=== PATIENT | female | born 1980 | race Two or more races ===

== ENCOUNTER 2017-01-23 20:27 | Inpatient (IN) | payer MEDICAID, OTHER ==
[~2017-01-23] VITALS: Ht 165.1 cm; Wt 55.9 kg
[2017-01-23 20:37] VITALS: Ht 165.1 cm; Wt 55.9 kg
[2017-01-23 21:24] VITALS: BP 112/56; PULSE 62; RESP 18
[2017-01-23] MEDS ORDERED: OXYTOCIN 30 UNITS/LR 500 ML IV PRN (21:30)
[2017-01-23] MEDS ORDERED: METHYLERGONOVINE 0.2 MG INJ IM PRN (21:30)
[2017-01-23] MEDS ORDERED: BUTORPHANOL 2 MG INJ IV PRN (21:30)
[2017-01-23] MEDS ORDERED: MISOPROSTOL 200 MCG TAB PR PRN (21:30)
[2017-01-23] MEDS ORDERED: OXYTOCIN 30 UNITS/LR 500 ML IV SCH ×2 (21:30)
[2017-01-23] MEDS ORDERED: DINOPROSTONE 10 MG VAG SUPP VAG ONE (21:30)
[2017-01-23] MEDS ORDERED: CARBOPROST 250 MCG INJ IM PRN (21:30)
[2017-01-23] MEDS ORDERED: LIDOCAINE 1% (MPF) 30 ML INJ INJ PRN (21:30)
[2017-01-23] MEDS: LACTATED RINGER'S 1,000 ML IV SCH (22:16)
--- NOTE | 2017-01-23 22:48 | HP ---
Date/Time of Note Date/Time of Note DATE: 01/23/17 TIME: 22:41 OB - History Hx of Present Free Text/Dictation Pt is a 36yo at 38+6 presenting from Perinatology at [facility] for induction of labor in the setting of IUGR. Pt was seen today for growth U/S for S<D and growth found to be inadequate on comparison to prior U/S. EFW 2671g, <10% ile with AC <2.3%ile. Dopplers and fluid wnl (9.82cm). Pt c/o feeling some UCs. Denies LOF or VB. Reports normal FM. Estimated Due Date: January 31, 2017 : 2 Para: 1 Care: Good Care Ultrasounds: Abnormal US findings (IUGR) Obstetrical Complications: Growth Restriction Medical Complications: None Other Concerns: AMA w/low risk NIPT; Normal echo 12/20/16. CMV, Parvo and Toxo IgG and IgM positive however no recent infection. Past Family/Social History * Past Medical, Surgical, Family and Obstetric Histories reviewed from chart. Blood Type: O+ Rubella: immune RPR/VDRL: Negative GBS Status: Negative HBsAG: Negative OB Admission Exam Vital Signs Vital Signs Vital Signs Date Time Temp Pulse Resp B/P Pulse Ox O2 Delivery O2 Flow Rate FiO2 01/23/17 21:24 97.5 62 18 112/56 Room Air Physical Exam HEENT: WNL Heart: Rhythm Normal Lungs: Clear Abdomen: WNL (gravid) Extremities: Normal Cervical Dilatation: None Effacement: 0% Station: Ballotable Membranes: Intact Heart Rate: 120's Accelerations: Accelerations Present Decelerations: No Decelerations Varibility: Moderate Contractions on Admission: 6-10 Minutes Apart (irregular) OB Assessment/Plan Reason for admission: induction of labor Other Assessment: IUGR at term Reactive NST Other plan: 1)Labor: Will begin IOL with Cervidil -Cont toco -Admission labs 2)FWB: Given IUGR with lagging AC, recommend IOL to which pt is in agreement -CEFM 3)ID: Afebrile. BOWI. GBS negative. GBS ppx therefore not indicated 4)Pain: Meds prn Plan d/w pt. Questions answered to her satisfaction. ZARA GIBBONS MD January 23, 2017 22:48
--- NOTE | 2017-01-23 22:58 | TRIAGE ---
OB Triage Datetime Report Generated by CPN: 01/23/2017 22:57 Datetime: 01/23/2017 22:15 Assessment Type: Ongoing Assessment Datetime: 01/23/2017 22:00 Stage of : Labor Assessment Type: Admission Assessment Vaginal Bleeding: None Maternal Assessment Level of Consciousness: Fully Conscious DTR's/Clonus: DTRs 2+; No Clonus Headache: Denies Blurred Vision: No Respiratory Effort: Unlabored; Regular Rhythm; Equal Expansion Breath Sounds, Left: Clear and Equal Breath Sounds, Right: Clear and Equal Nausea/Vomiting: Denies RUQ Epigastric Pain: Denies Lower Extremities Edema: None Degree: None Upper Extremities Edema: None Degree: None Facial Edema: None Fall Risk Assessment History of Falling: (0) No Secondary Diagnosis: (0) No Ambulatory Aid: (0) Bedrest/Nurse Assist IV Therapy: (0) No Gait: (0) Normal/Bedrest/Immobile Mental Status: (0) Oriented to Own Ability Fall Score: 0 Fall Risk Score Definition: No Risk: No action required Pain Assessment Pain Scale: 0 Pain Presence: None/Denies Pain Type: N/A Datetime: 01/23/2017 21:55 Time of Arrival: 01/23/2017 21:55 EGA: 38.6 Arrived By: Wheelchair Arrived From: Other Unit in Hospital Datetime: 01/23/2017 21:50 Stage of : OB Triage Labor Evaluation Frequency: OCCASS Monitor Mode: External Duration (sec)2399: 80-120 Quality: Mild Pattern: Normal: <= 5 Contractions in 10 Minutes Resting Tone [place]: Relaxed Heart Rate FHR Baseline Rate: 130 Monitor Mode: External US Variability: Moderate 6-25 bpm Accelerations: 15X15 Decelerations: None Category: Category I Pain Assessment Pain Scale: 5 Pain Presence: Intermittent Pain Type: Cramping Pain Location: Abdomen Pain Relief Measures: Comfort Measures Datetime: 01/23/2017 21:05 Vaginal Exam Dilatation (cms): 0.0 Effacement (%): 0 Station: -2 Exam By: ZANDER Vaginal Bleeding: None Cervix, Consistency: Moderate Cervix, Position: Posterior Datetime: 01/23/2017 20:50 Time of Arrival: 01/23/2017 20:22 EGA: 38.6 Arrived By: Wheelchair Arrived From: Other Hospital Chief Complaint: PT. CAME IN FROM [facility] FOR RECOMMENDED DELIVERY FOR GROWTH RESTRICT ION AND ABD. PAIN Movement: Present Contractions: Occasional Rupture of Membranes: Denies Vaginal Discharge: Denies Additional Patient Complaints: EFW [id number] Time Provider Notified: 01/23/2017 21:22 Provider Notified: SHAI Initial Plan: EFM, ASSESSMENT, CALL MD FOR ORDERS Datetime: 01/23/2017 20:42 Assessment Type: Triage Maternal Assessment Level of Consciousness: Fully Conscious DTR's/Clonus: DTRs 2+; No Clonus Headache: Denies Blurred Vision: No Respiratory Effort: Unlabored; Regular Rhythm; Equal Expansion Breath Sounds, Left: Clear and Equal Breath Sounds, Right: Clear and Equal Nausea/Vomiting: Denies RUQ Epigastric Pain: Denies Lower Extremities Edema: None Upper Extremities Edema: None Facial Edema: None Fall Risk Assessment History of Falling: (0) No Secondary Diagnosis: (0) No Ambulatory Aid: (0) Bedrest/Nurse Assist IV Therapy: (0) No Gait: (0) Normal/Bedrest/Immobile Mental Status: (0) Oriented to Own Ability Fall Score: 0 Fall Risk Score Definition: No Risk: No action required
[2017-01-23 23:00] LABS: ADD SCAN DIFF NO
[2017-01-23 23:01] LABS: BASOPHILS % 0.2 % (0.0-2.0); EOSINOPHILS # 0.1 10^3/ul (0.0-0.5); EOSINOPHILS % 0.9 % (0.0-7.0); HEMATOCRIT 36.5 % (37.0-47.0); HEMOGLOBIN 12.2 g/dl (12.0-16.0); LYMPHOCYTES # 2.3 10^3/ul (0.8-2.9); LYMPHOCYTES % 24.3 % (15.0-51.0); MEAN CORPUSCULAR HGB CONC 33.4 g/dl (32.0-37.0); MEAN CORPUSCULAR VOLUME 86.7 fl (82.0-101.0); MEAN PLATELET VOLUME 11.9 fl (7.4-10.4); MONOCYTE # 0.7 10^3/ul (0.3-0.9); MONOCYTES % 7.8 % (0.0-11.0); NEUTROPHIL # 6.2 10^3/ul (1.6-7.5); NEUTROPHILS % 66.3 % (39.0-77.0); PLATELET COUNT 215 10^3/UL (140-415); RED BLOOD COUNT 4.21 10^6/ul (4.20-5.40); RED CELL DISTRIBUTION WIDTH 13.5 % (11.5-14.5); WHITE BLOOD COUNT 9.3 10^3/ul (4.8-10.8)
[2017-01-23 23:19] LABS: INR 0.93; PROTIME 12.5 Sec (12.2-14.2)
[2017-01-23 23:20] LABS: PARTIAL THROMBOPLASTIN TIME 28.9 Sec (25.0-35.0)
[2017-01-24] MEDS: LACTATED RINGER'S 1,000 ML IV SCH ×2 (04:01→09:18)
[2017-01-24] MEDS ORDERED: FENTAnyl 2MCG/ML-ROPIV 0.2% 100 ML ONE (08:30)
[2017-01-24] MEDS ORDERED: OXYTOCIN 30 UNITS/LR 500 ML IV SCH (08:30)
[2017-01-24] MEDS ORDERED: LACTATED RINGER'S 1,000 ML IV PRN (09:00)
--- NOTE | 2017-01-24 11:20 | LDN ---
Date/Time of Note Date/Time of Note DATE: 01/24/17 TIME: 11:19 Delivery Summary nsd no complications Weeks of Gestation 39 weeks Placenta Delivered: Spontaneously Meconium: none Episiotomy: No Perineal laceration: 2 Anesthesia type: Epidural Estimated blood loss: 350 Sponge & Needle done & correct: Yes All needle counts correct: Yes Problems: LILIA YAN MD January 24, 2017 11:20
[2017-01-24] MEDS ORDERED: CARBOPROST 250 MCG INJ IM PRN (11:30)
[2017-01-24] MEDS ORDERED: DIPHENHYDRAMINE 25 MG CAP PO PRN (11:30)
[2017-01-24] MEDS ORDERED: METHYLERGONOVINE 0.2 MG INJ IM PRN (11:30)
[2017-01-24] MEDS ORDERED: SENNA/DOCUSATE NA (8.6MG/50MG) TAB PO PRN (11:30)
[2017-01-24] MEDS ORDERED: OXYTOCIN 30 UNITS/LR 500 ML IV PRN (11:30)
[2017-01-24] MEDS ORDERED: WITCH HAZEL/GLYCERIN PAD PR PRN (11:30)
[2017-01-24] MEDS ORDERED: ZOLPIDEM 5 MG TAB PO PRN (11:30)
[2017-01-24] MEDS ORDERED: MISOPROSTOL 200 MCG TAB PR PRN (11:30)
[2017-01-24] MEDS ORDERED: MAGNESIUM HYDROXIDE 30ML CUP PO PRN (11:30)
[2017-01-24] MEDS ORDERED: LANOLIN 7 GM TUBE TOP PRN (11:30)
[2017-01-24] MEDS ORDERED: ACETAMINOPHEN 325 MG TAB PO PRN (11:30)
[2017-01-24] MEDS ORDERED: ACETAMINOPHEN/CODEINE #3 TAB PO PRN (11:30)
[2017-01-24] MEDS: OXYTOCIN 30 UNITS/LR 500 ML IV SCH ×2 (11:36→15:56)
[2017-01-24] MEDS: LACTATED RINGER'S 1,000 ML IV* SCH ×2 (11:45→20:58)
[2017-01-24] MEDS ORDERED: ONDANSETRON 4 MG INJ ONE (12:27)
[2017-01-24] MEDS ORDERED: ONDANSETRON 4 MG INJ IV PRN (12:30)
[2017-01-24 12:45] VITALS: BP 113/70; PULSE 60; RESP 18
[2017-01-24 13:30] VITALS: BP 114/70; PULSE 61; RESP 18
[2017-01-24] MEDS ORDERED: NALOXONE (0.4 MG/ML) INJ IV PRN (13:30)
[2017-01-24] MEDS ORDERED: FENTAnyl 2MCG/ML-ROPIV 0.2% 100 ML BAG EPI SCH (13:30)
[2017-01-24 14:15] LABS: ADD SCAN DIFF NO
[2017-01-24 14:17] LABS: BASOPHILS % 0.2 % (0.0-2.0); HEMATOCRIT 32.8 % (37.0-47.0); HEMOGLOBIN 11.2 g/dl (12.0-16.0); LYMPHOCYTES # 1.3 10^3/ul (0.8-2.9); LYMPHOCYTES % 7.9 % (15.0-51.0); MEAN CORPUSCULAR HEMOGLOBIN 29.6 pg (29.0-33.0); MEAN CORPUSCULAR HGB CONC 34.1 g/dl (32.0-37.0); MEAN CORPUSCULAR VOLUME 86.5 fl (82.0-101.0); MEAN PLATELET VOLUME 11.4 fl (7.4-10.4); MONOCYTE # 0.7 10^3/ul (0.3-0.9); MONOCYTES % 4.2 % (0.0-11.0); NEUTROPHIL # 14.2 10^3/ul (1.6-7.5); NEUTROPHILS % 87.2 % (39.0-77.0); PLATELET COUNT 193 10^3/UL (140-415); RED BLOOD COUNT 3.79 10^6/ul (4.20-5.40); RED CELL DISTRIBUTION WIDTH 13.3 % (11.5-14.5); WHITE BLOOD COUNT 16.2 10^3/ul (4.8-10.8)
[2017-01-24 15:47] VITALS: BP 93/63; PULSE 59; RESP 18
[2017-01-24] MEDS: BENZOCAINE 20% 56 ML SPRAY TOP PRN (15:57)
[2017-01-24] MEDS: IBUPROFEN 800 MG TAB PO SCH ×3 (17:49→23:45)
[2017-01-24 19:45] VITALS: BP 99/61; PULSE 67; RESP 18
[2017-01-25] MEDS: LACTATED RINGER'S 1,000 ML IV* SCH ×2 (03:20→11:20)
[2017-01-25 03:45] VITALS: BP 100/49; PULSE 61; RESP 18
[2017-01-25] MEDS: IBUPROFEN 800 MG TAB PO SCH ×3 (05:36→17:32)
[2017-01-25 08:00] VITALS: BP 89/58; PULSE 60; RESP 18
[2017-01-25 08:05] LABS: ADD SCAN DIFF NO
[2017-01-25 08:20] LABS: BASOPHILS % 0.2 % (0.0-2.0); EOSINOPHILS # 0.1 10^3/ul (0.0-0.5); EOSINOPHILS % 0.6 % (0.0-7.0); HEMOGLOBIN 10.3 g/dl (12.0-16.0); LYMPHOCYTES # 2.1 10^3/ul (0.8-2.9); LYMPHOCYTES % 21.1 % (15.0-51.0); MEAN CORPUSCULAR HEMOGLOBIN 29.1 pg (29.0-33.0); MEAN CORPUSCULAR HGB CONC 33.2 g/dl (32.0-37.0); MEAN CORPUSCULAR VOLUME 87.6 fl (82.0-101.0); MEAN PLATELET VOLUME 11.4 fl (7.4-10.4); MONOCYTE # 0.5 10^3/ul (0.3-0.9); MONOCYTES % 5.2 % (0.0-11.0); NEUTROPHIL # 7.4 10^3/ul (1.6-7.5); NEUTROPHILS % 72.4 % (39.0-77.0); PLATELET COUNT 195 10^3/UL (140-415); RED BLOOD COUNT 3.54 10^6/ul (4.20-5.40); RED CELL DISTRIBUTION WIDTH 13.4 % (11.5-14.5); WHITE BLOOD COUNT 10.2 10^3/ul (4.8-10.8)
[2017-01-25 16:00] VITALS: BP 105/43; PULSE 73; RESP 18
[2017-01-25 19:45] VITALS: BP 96/55; PULSE 61; RESP 18
[2017-01-26] MEDS: IBUPROFEN 800 MG TAB PO SCH ×3 (00:20→11:49)
[2017-01-26 04:10] VITALS: BP 94/57; PULSE 62; RESP 18
[2017-01-26] MEDS: BENZOCAINE 20% 56 ML SPRAY TOP PRN (06:31)
[2017-01-26] MEDS: LACTATED RINGER'S 1,000 ML IV* SCH ×3 (07:40→11:20)
[2017-01-26 08:45] VITALS: BP 98/53; PULSE 66; RESP 16
[2017-01-26] MEDS ORDERED: VARICELLA VACCINE LIVE/PF 1,350 UNIT/0.5 ML ML SC* ONE (09:00)
[2017-01-26] MEDS ORDERED: DIPHTH/TET/ACEL PERTUSS (ADULT) 0.5 ML VIAL IM* ONE (09:00)
[2017-01-26] MEDS ORDERED: MEASLES,MUMPS,RUBELLA VACCINE INJ SC* ONE (09:00)
--- NOTE | 2017-01-26 11:54 | PN ---
Date/Time of Note Date/Time of Note DATE: 01/26/17 TIME: 11:52 OB Subjective Subjective Subjective day #2 Patient has no complaints OB Objective Objective Objective Patient is afebrile and stable HEENT: WNL Heart: Rhythm Normal Lungs: Clear, Equal Abdomen: WNL (Fundus firm) Extremities: Normal Reflexes: Normal OB Assessment/Plan Other Assessment: day #2 Patient is afebrile and stable Other plan: DC home today Follow-up Dr. Wall in 2 and 6 weeks BARBER THOMPSON MD January 26, 2017 11:54
--- NOTE | 2017-01-26 11:55 | DS ---
Date/Time of Note Date/Time of Note DATE: 01/26/17 TIME: 11:54 Obstetrical Discharge Record Final Diagnosis Final Diagnosis: Term delivered Vaginal Delivery Obstetrical Delivery: Spontaneous Condition on Discharge Physical Assessment Voiding: Yes Bowel Movement: Yes Breast: Soft, non-tender Fundus: Firm Calf Tenderness: No Patient Condition: Good Copies To: CC: LILIA YNA MD, BAHAREH MD January 26, 2017 11:54
--- NOTE | 2017-01-26 11:57 | PD.PPDC ---
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
== END 2017-01-26 17:23 | disposition home or self-care (01) | DRG 775 ==
LOC: OBT 20:27 → L-D 20:28 → OBT 21:22 → L-D 21:22 → PP1 01-24 12:36
PROVIDERS: ADMIT Obstetrics & Gynecology; ATTEND Obstetrics & Gynecology
PROC: 10E0XZZ Delivery of Products of Conception, External Approach (ICD-10-PCS; principal; 2017-01-24)
PROC: 0KQM0ZZ Repair Perineum Muscle, Open Approach (ICD-10-PCS; 2017-01-24)
PROC: 3E00X4Z Introduction of Serum, Toxoid and Vaccine into Skin and Mucous Membranes, External Approach (ICD-10-PCS; 2017-01-26)
DX: O70.1 Second degree perineal laceration during delivery (principal); Z37.0 Single live birth; Z23 Encounter for immunization; Z3A.39 39 weeks gestation of pregnancy
CPT/HCPCS: 62319; 85025; 85610; 85730; 86592; 86900; 86901; 87340; 88307; 90715; 90716; G0463; J2405; J2590; J3010; J7120